=== PATIENT | male | born 1990 ===

== ENCOUNTER 2017-06-02 19:17 | Emergency (ER) | payer SELFPAY ==
[2017-06-02] MEDS ORDERED: LIDOCAINE HCL 1% 20 ML VIAL ONE (19:42)
== END 2017-06-02 20:20 | disposition home or self-care (01) ==
LOC: EDH 19:17
DX: K02.9 Dental caries, unspecified (principal); Z79.899 Other long term (current) drug therapy; Z72.0 Tobacco use

== ENCOUNTER 2019-06-10 20:22 | Inpatient (IN) | payer SELFPAY ==
[~2019-06-10] VITALS: Ht 175.3 cm; Wt 77.1 kg
[2019-06-10 21:22] LABS: BASOPHILS % (AUTO) 0.8 % (0.0-5.0); EOSINOPHILS % (AUTO) 2.8 % (0.0-8.0); HEMATOCRIT 42.4 % (42-54); LYMPHOCYTES % (AUTO) 20.5 % (21.0-51.0); MEAN CORPUSCULAR HEMOGLOBIN 27.5 pg (27.0-33.0); MEAN CORPUSCULAR HGB CONC 33.5 g/dL (32.0-36.0); MEAN CORPUSCULAR VOLUME 82.2 fL (79-99); MONOCYTES % (AUTO) 7.5 % (3.0-13.0); NEUTROPHILS % (AUTO) 68.1 % (40.0-77.0); PLATELET COUNT (AUTO) 279 K/uL (130-400); RED BLOOD CELL COUNT(AUTO) 5.16 MIL/uL (4.50-6.20); RED CELL DISTRIBUTION WIDTH 13.1 % (11.0-15.5)
[2019-06-10 21:31] LABS: AMPHET/METH SCREEN,URINE NEGATIVE (NEGATIVE); BARBITURATE SCREEN, URINE NEGATIVE (NEGATIVE); BENZODIAZEPINES SCREEN,URINE NEGATIVE (NEGATIVE); CANNABINOID SCREEN,URINE NEGATIVE (NEGATIVE); COCAINE SCREEN,URINE NEGATIVE (NEGATIVE); OPIATE SCREEN,URINE NEGATIVE (NEGATIVE); PHENCYCLIDINE SCREEN,URINE NEGATIVE (NEGATIVE)
[2019-06-10 21:36] LABS: CREATININE 1.1 mg/dL (0.5-1.5); POTASSIUM 3.6 mmol/L (3.5-5.1)
[2019-06-10 21:41] LABS: ALBUMIN 3.6 g/dL (3.5-5.0); BILIRUBIN,TOTAL 0.8 mg/dL (0.2-1.0)
[2019-06-10 21:48] LABS: APPEARANCE,URINE Clear (CLEAR); BILIRUBIN,URINE Negative (NEGATIVE); COLOR,URINE Yellow (YELLOW); GLUCOSE, URINE (UA) Negative (NEGATIVE); KETONES,URINE Negative (NEGATIVE); LEUKOCYTE ESTERASE ,URINE Negative (NEGATIVE); NITRATE,URINE Negative (NEGATIVE); OCCULT BLOOD,URINE Negative (NEGATIVE); PROTEIN,URINE Negative (NEGATIVE)
[2019-06-10] MEDS ORDERED: ACETAMINOPHEN 325 MG TAB ONE (21:54)
[2019-06-10] MEDS ORDERED: ASPIRIN 81MG TAB.CHEW ONE (21:54)
[2019-06-10] MEDS ORDERED: IOHEXOL-350 75 ML VIAL IV ONE (21:57)
[2019-06-11] MEDS ORDERED: ACETAMINOPHEN 325 MG TAB PO PRN ×2 (00:45)
[2019-06-11] MEDS ORDERED: LACTULOSE 20 GM/30 ML UDCUP PO PRN (00:45)
[2019-06-11] MEDS ORDERED: ONDANSETRON HCL 4 MG/2 ML VIAL IV PRN (00:45)
[2019-06-11 01:07] LABS: CHOLESTEROL 173 mg/dL (<200); HDL CHOLESTEROL 51 mg/dL (29-71); LDL DIRECT 115 mg/dL (0-99); TRIGLYCERIDES 136 mg/dL (30-200)
[2019-06-11 03:00] VITALS: BP 132/89
--- NOTE | 2019-06-11 03:00 | NUR ---
ADMISSION PT ADMITTED INTO ROOM 408, AWAKE, ALERT AND VERBALLY RESPONSIVE. NO C/O PAIN OR DISCOMFORT AT THIS TIME. NO C/O NUMBNESS OR DIZZINESS AT THIS TIME. PT ORIENTED TO ROOM, CALL PEREZ WITHIN REACH, BED IN LOWEST POSITION. Addendum: 06/11/19 at 0328 by REFUGIO CARDENAS RN Amended: Links added.
[2019-06-11 04:49] LABS: BASOPHILS % (AUTO) 0.8 % (0.0-5.0); EOSINOPHILS % (AUTO) 3.5 % (0.0-8.0); HEMATOCRIT 42.3 % (42-54); LYMPHOCYTES % (AUTO) 27.3 % (21.0-51.0); MEAN CORPUSCULAR HEMOGLOBIN 27.6 pg (27.0-33.0); MEAN CORPUSCULAR HGB CONC 33.3 g/dL (32.0-36.0); MEAN CORPUSCULAR VOLUME 82.9 fL (79-99); MONOCYTES % (AUTO) 8.9 % (3.0-13.0); NEUTROPHILS % (AUTO) 59.1 % (40.0-77.0); PLATELET COUNT (AUTO) 291 K/uL (130-400); RED CELL DISTRIBUTION WIDTH 13.2 % (11.0-15.5); WHITE BLOOD COUNT (AUTO) 8.3 K/uL (4.8-10.8)
[2019-06-11 05:24] LABS: CREATININE 1.2 mg/dL (0.5-1.5); POTASSIUM 4.7 mmol/L (3.5-5.1)
[2019-06-11 08:08] VITALS: BP 129/76
[2019-06-11] MEDS: FAMOTIDINE 20MG TAB 20 MG TAB PO SCH ×2 (08:41→20:24)
[2019-06-11] MEDS ORDERED: ASPIRIN 325 MG TABLET PO SCH (09:00)
[2019-06-11 11:58] VITALS: BP 118/70
[2019-06-11 16:00] VITALS: BP 126/71
[2019-06-11 20:00] VITALS: BP 141/83
--- NOTE | 2019-06-11 20:30 | NUR ---
ROUNDING. DR. HOGAN IN TO SEE PT. NO NEW ORDERS GIVEN AT THIS TIME.
[2019-06-11] MEDS ORDERED: ATORVASTATIN CALCIUM 20 MG TABLET PO SCH (21:00)
[2019-06-12] VITALS: BP 125/72
[2019-06-12 04:00] VITALS: BP 115/77
[2019-06-12 08:00] VITALS: BP 139/72
[2019-06-12] MEDS ORDERED: ASPIRIN 81MG TAB.CHEW PO SCH (09:00)
[2019-06-12] MEDS: FAMOTIDINE 20MG TAB 20 MG TAB PO SCH (09:26)
[2019-06-12 11:00] VITALS: BP 113/73
[2019-06-12 16:00] VITALS: BP 115/76
--- NOTE | 2019-06-12 16:08 | NUR ---
EMAIL SENT MARCIA SINGH, DIRECTOR SENT EMAIL TO SAMANTHA, DIRECTOR ASKING FOR READING OF [facility]
--- NOTE | 2019-06-12 17:11 | NUR ---
INITIAL Patient lives with parents. Emergency contact is Ollie Rich Jr, [phone]. No home services or DME. Patient is able to complete ADL's independently and drives. No PCP. Pharmacy is [facility]. DCP is home. Patient has no insurance or benefits. He is a [place] citizen and has worked in the [place]. Patient was provided with community resources for post hospitalization follow up. Patient was also provided with Good RX card for prescriptions and educated on [employer] $4 medication program and [employer] $5 medication program. Patient is being assisted by [email or web address] for financial matters. Addendum: 06/12/19 at 1713 by NICOLE JASSO Amended: Links added.
== END 2019-06-12 18:40 | disposition left against medical advice (07) | DRG 312 ==
LOC: EDH 20:22 → OBSVTOIN 20:23 → EDHIP 20:23 → UNDOADMOB 06-11 00:43 → 4BH 06-11 01:34
PROVIDERS: ADMIT Internal Medicine; ATTEND Internal Medicine
DX: R55 Syncope and collapse (principal); R00.2 Palpitations; F41.1 Generalized anxiety disorder; F39 Unspecified mood [affective] disorder
CPT/HCPCS: 36415; 70450; 70496; 70498; 70551; 80048; 80053; 80061; 80305; 81003; 82948; 84484; 85025; 93005; 93306; 93356; 95819; G0378; Q9967

== ENCOUNTER 2020-09-18 03:22 | Inpatient (IN) | payer OTHER ==
[2020-09-18] MEDS ORDERED: HYDROCODONE/ACETAMINOPHEN 5/325 MG TAB ONE (03:29)
[2020-09-18 04:39] LABS: BASOPHILS % (AUTO) 0.3 % (0.0-5.0); EOSINOPHILS % (AUTO) 0.3 % (0.0-8.0); HEMATOCRIT 41.2 % (42-54); MEAN CORPUSCULAR HEMOGLOBIN 27.5 pg (27.0-33.0); MEAN CORPUSCULAR HGB CONC 33.5 g/dL (32.0-36.0); MEAN CORPUSCULAR VOLUME 82.1 fL (79-99); MONOCYTES % (AUTO) 5.3 % (3.0-13.0); NEUTROPHILS % (AUTO) 87.6 % (40.0-77.0); PLATELET COUNT (AUTO) 300 K/uL (130-400); RED BLOOD CELL COUNT(AUTO) 5.02 MIL/uL (4.50-6.20); RED CELL DISTRIBUTION WIDTH 13.3 % (11.0-15.5)
[2020-09-18] MEDS ORDERED: MORPHINE SULFATE 4 MG/1ML SYG ONE (04:46)
[2020-09-18] MEDS ORDERED: ONDANSETRON HCL 4 MG/2 ML VIAL ONE (04:46)
[2020-09-18 04:48] LABS: INR 1.08 (0.85-1.15); PROTHROMBIN TIME 11.7 SEC (9.6-11.6)
[2020-09-18 04:49] LABS: PARTIAL THROMBOPLASTIN TIME 24.8 SEC (26.3-35.5)
[2020-09-18 04:50] LABS: AMPHET/METH SCREEN,URINE NEGATIVE (NEGATIVE); BARBITURATE SCREEN, URINE NEGATIVE (NEGATIVE); BENZODIAZEPINES SCREEN,URINE NEGATIVE (NEGATIVE); CANNABINOID SCREEN,URINE NEGATIVE (NEGATIVE); COCAINE SCREEN,URINE NEGATIVE (NEGATIVE); OPIATE SCREEN,URINE NEGATIVE (NEGATIVE); PHENCYCLIDINE SCREEN,URINE NEGATIVE (NEGATIVE)
[2020-09-18 04:50] LABS: CARBON DIOXIDE 27 mmol/L (21-32); CHLORIDE 104 mmol/L (101-111); CREATININE 1.1 mg/dL (0.5-1.5); GLOMERULAR FILTR. RATE CALC 82 mL/min (>60); GLUCOSE,RANDOM 114 mg/dL (70-105); POTASSIUM 3.7 mmol/L (3.5-5.1); SODIUM SERUM 140 mmol/L (136-145); UREA NITROGEN, BLOOD 14 mg/dL (7-18)
[2020-09-18 04:54] LABS: ALANINE AMINOTRANSFERASE 35 U/L (12-78); ALBUMIN 3.8 g/dL (3.5-5.0); ASPARTATE AMINOTRANSFERASE 24 U/L (10-37); BILIRUBIN,TOTAL 0.6 mg/dL (0.2-1.0); TOTAL PROTEIN, SERUM 7.9 g/dL (6.0-8.3)
[2020-09-18 05:04] LABS: ALCOHOL, BLOOD < 3 mg/dL (0-10)
[2020-09-18] MEDS ORDERED: CLINDAMYCIN 300 MG/D5W 50 ML 50 ML IV ONE (05:20)
[2020-09-18] MEDS ORDERED: ONDANSETRON HCL 4 MG/2 ML VIAL IV PRN (06:30)
[2020-09-18] MEDS ORDERED: ACETAMINOPHEN 325 MG TAB PO PRN ×2 (06:30)
[2020-09-18] MEDS ORDERED: CLINDAMYCIN 600 MG/D5% WATER 50 ML IV SCH (06:30)
[2020-09-18] MEDS ORDERED: ACETAMINOPHEN-CODEINE 300/30MG TAB PO PRN (06:30)
[2020-09-18] MEDS ORDERED: LACTULOSE 20 GM/30 ML UDCUP PO PRN (06:30)
[2020-09-18] MEDS ORDERED: KETOROLAC TROMETHAMINE 15MG/ML IV PRN (07:00)
[2020-09-18] MEDS ORDERED: FAMOTIDINE 20MG TAB 20 MG TAB ONE (08:09)
[2020-09-18] MEDS ORDERED: ENOXAPARIN SODIUM 40 MG/0.4 ML SYRINGE SQ ONE (08:09)
[2020-09-18] MEDS ORDERED: FAMOTIDINE 20MG TAB 20 MG TAB PO SCH (09:00)
[2020-09-18] MEDS ORDERED: ENOXAPARIN SODIUM 40 MG/0.4 ML SYRINGE SQ SCH (09:00)
[2020-09-18 13:40] LABS: APPEARANCE,URINE Clear (CLEAR); BILIRUBIN,URINE Negative (NEGATIVE); COLOR,URINE Yellow (YELLOW); GLUCOSE, URINE (UA) Negative (NEGATIVE); KETONES,URINE Negative (NEGATIVE); LEUKOCYTE ESTERASE ,URINE Negative (NEGATIVE); NITRATE,URINE Negative (NEGATIVE); OCCULT BLOOD,URINE Negative (NEGATIVE); PROTEIN,URINE Negative (NEGATIVE)
[2020-09-18 13:55] LABS: BACTERIA,URINE Rare /HPF (None Seen); MUCUS,URINE Moderate LPF (None Seen); RBC,URINE 0-1 /HPF (0-1); SQUAMOUS EPITHELIAL CELL,UR 0-2 /HPF (0-2); WBC,URINE 0-1 /HPF (0-1)
== END 2020-09-18 09:25 | disposition left against medical advice (07) | DRG 159 ==
LOC: EDH 03:22 → EDHIP 03:23
PROVIDERS: ADMIT Internal Medicine; ATTEND Internal Medicine
DX: S02.601A Fracture of unspecified part of body of right mandible, initial encounter for closed fracture (principal); Y04.0XXA Assault by unarmed brawl or fight, initial encounter; D72.829 Elevated white blood cell count, unspecified; Z20.822 Contact with and (suspected) exposure to COVID-19; Y93.89 Activity, other specified; Y92.89 Other specified places as the place of occurrence of the external cause; Y99.8 Other external cause status; Z82.3 Family history of stroke
CPT/HCPCS: 36415; 70450; 70486; 71046; 80053; 80305; 81001; 85025; 85610; 85730; 87088; 87426; 87635; 93005; C9803; G0378; J1650; J2270; J2405; J3490